=== PATIENT | female | born 1980 | race Caucasian/White ===

== ENCOUNTER 2025-02-28 12:19 | Emergency (ER) | payer OTHER ==
[~2025-02-28] VITALS: Ht 167.6 cm; Wt 61.0 kg
[2025-02-28 12:22] VITALS: O2SAT 100
[2025-02-28] MEDS: HYDROCODONE/ACETAMINOPHEN 5/325MG TABLET PO ONE (13:47)
[2025-02-28 14:37] LABS: HCG SCREEN NEGATIVE
[2025-02-28] MEDS ORDERED: PROPRANOLOL HCL 10MG TABLET PO ONE (16:00)
[2025-02-28] MEDS ORDERED: CLONAZEPAM 1MG TABLET PO ONE (16:00)
[2025-02-28 16:21] VITALS: BP 167/80; RESP 20; TEMP 36.8; O2SAT 99
[2025-02-28] MEDS: CLONAZEPAM 1MG TABLET PO SCH (16:59)
[2025-02-28] MEDS: SERTRALINE HCL 100MG TABLET PO SCH (16:59)
[2025-02-28 17:00] VITALS: PULSE 74
[2025-02-28] MEDS: KETOROLAC 15MG/ML VIAL IV ONE (17:00)
[2025-02-28] MEDS: PROPRANOLOL HCL 10MG TABLET PO SCH (17:00)
[2025-02-28 17:02] LABS: CARBON DIOXIDE 26 mEq/L (21-32); CHLORIDE 109 mEq/L (98-107); POTASSIUM 3.7 mEq/L (3.5-5.1); SODIUM 141 mEq/L (136-145)
[2025-02-28 17:03] LABS: BASOPHILS % 0.6 % (0.0-2.0); CALCIUM 9.1 mg/dL (8.7-10.4); EOSINOPHILS % 0.5 % (0.0-5.0); HEMATOCRIT. 32.8 % (36.0-48.0); HEMOGLOBIN. 10.9 g/dL (12.0-16.0); LYMPHOCYTES % 28.5 % (20.0-50.0); MEAN CORPUSCULAR HEMOGLOBIN 29.1 pg (28.0-32.0); MEAN CORPUSCULAR HGB CONC 33.2 g/dL (31.0-37.0); MEAN CORPUSCULAR VOLUME 87.7 fL (81.0-99.0); MEAN PLATELET VOLUME 8.9 fl (7.4-10.4); MONOCYTES % 9.6 % (2.0-8.0); NEUTROPHILS % 60.8 % (40.0-76.0); PLATELET 222 x1000/uL (130-400); RED BLOOD CELL COUNT 3.74 mill/uL (4.2-5.4); RED CELL DISTRIBUTION WIDTH 14.7 % (11.6-14.6); WHITE BLOOD COUNT 6.2 x1000/uL (4.5-11.0)
[2025-02-28 17:07] LABS: CREATININE 0.8 mg/dL (0.6-1.0)
[2025-02-28 17:08] LABS: ETHANOL BLOOD < 10 mg/dL (<10); GLUCOSE 102 mg/dL (70-105); UREA NITROGEN BLOOD 10 mg/dL (9-23)
[2025-02-28 17:09] LABS: ACETAMINOPHEN 5 ug/mL (10-30)
[2025-02-28] MEDS ORDERED: PROP10TA10 MT (17:59)
[2025-02-28] MEDS ORDERED: SERT-112 MT (17:59)
== END 2025-02-28 18:00 | disposition home or self-care (01) ==
LOC: ER 12:19
DX: S00.83XA Contusion of other part of head, initial encounter (principal); R45.851 Suicidal ideations; M25.511 Pain in right shoulder; R07.81 Pleurodynia; M54.2 Cervicalgia; I10 Essential (primary) hypertension; E11.9 Type 2 diabetes mellitus without complications; F32.A Depression, unspecified; Z76.0 Encounter for issue of repeat prescription; Y04.0XXA Assault by unarmed brawl or fight, initial encounter; Y93.89 Activity, other specified; Y92.89 Other specified places as the place of occurrence of the external cause; Y99.8 Other external cause status
CPT/HCPCS: 80048; 80307; 80329; 80320; 84703; 85025; 36415; 70450; 70486; 72125; 96374; 99285; J1885; G0480